=== PATIENT | female | born 1990 | race Caucasian/White ===

== ENCOUNTER 2016-05-16 19:10 | Emergency (ER) | payer OTHER ==
[~2016-05-16] VITALS: Ht 162.6 cm; Wt 56.7 kg
[2016-05-16] MEDS ORDERED: ZOFRAN4 MG ORAL (21:15)
--- NOTE | 2016-05-16 21:15 | Emergency Room Report ---
History of Present Illness General Chief Complaint: Vomiting Source: Patient Present Illness HPI Is a 25-year-old female with no past medical history. She is not sexually active. She present with chief complaint of feeling nauseous and vomiting. Onset last 5 hours. Initially unable to keep anything down but for the last couple hours she's been able to keep small amount of fluid in. No diarrhea. Has cramping epigastric abdominal pain. Denies any fever or chills. No sick contact. No other complaint. Vomiting is nonbloody and nonbileous. Allergies: Coded Allergies: No Known Allergies (Unverified , 05/16/16) Patient History Past Medical History: see triage record, old chart reviewed Past Surgical History: none Pertinent Family History: none Social History: Denies: smoking Last Menstrual Period: 05/06/16 Now: No Immunizations: other Reviewed Nursing Documentation: PMH: Agreed, PSxH: Agreed Nursing Documentation-PMH Past Medical History: No Stated History Review of Systems Eye: Denies: blurred vision, eye pain ENT: Denies: ear pain, nose congestion, throat swelling Respiratory: Denies: cough, shortness of breath Cardiovascular: Denies: chest pain, palpitations Gastrointestinal: Reports: nausea, vomiting, Denies: abdominal pain, diarrhea Musculoskeletal: Denies: back pain, joint pain Skin: Denies: rash Neurological: Denies: headache, numbness Endocrine: Denies: increased thirst, increased urine Hematologic/Lymphatic: Denies: easy bruising All Other Systems: negative except mentioned in HPI Physical Exam Vital Signs Date Time Temp Pulse Resp B/P Pulse Ox O2 Delivery O2 Flow Rate FiO2 05/16/16 19:56 98.8 65 16 106/65 100 Room Air vitals normal Sp02 EP Interpretation: reviewed, normal General Appearance: well appearing, no apparent distress, alert Head: normocephalic, atraumatic Eyes: bilateral eye EOMI, bilateral eye PERRL ENT: hearing grossly normal, normal pharynx Neck: full range of motion, supple, no meningismus Respiratory: chest non-tender, lungs clear, normal breath sounds Cardiovascular #1: regular rate, rhythm, no murmur Gastrointestinal: non tender, no mass, no organomegaly, no bruit, non-distended , abnormal bowel sounds - Hypoactive Musculoskeletal: back normal, gait/station normal, normal range of motion Neurologic: alert, oriented x3 Psychiatric: mood/affect normal Skin: warm/dry Medical Decision Making Diagnostic Impression: Primary Impression: Vomiting Qualified Codes: R11.2 - Nausea with vomiting, unspecified ER Course Patient with abdominal cramps and vomiting. Most likely viral illness. His been prevalent in the community for the last couple weeks. Abdominal exam is benign. She's not psychiatric so therefore unlikely. She felt better now. Patient was seen initially by the PA and labs were ordered. I see no need for patient is feeling better. We'll discharge home. Told patient that if she still having symptoms tomorrow morning or if symptom worsen tonight , come on back. Right now I see no evidence of acute abdomen or obstruction. No evidence of appendicitis. Last Vital Signs Date Time Temp Pulse Resp B/P Pulse Ox O2 Delivery O2 Flow Rate FiO2 05/16/16 19:56 98.8 65 16 106/65 100 Room Air Disposition: HOME, SELF-CARE Condition: Stable Scripts Ondansetron (Zofran) 4 Mg Tablet 4 MG ORAL Q6H Y for Nausea & Vomiting, #10 TAB 0 Refills Prov: ARIELLE CARMEN M.D. 05/16/16 Referrals: NON PHYSICIAN (PCP) Patient Instructions: Nausea and Vomiting, Adult Additional Instructions: Advance diet as tolerated. Followup with your Dr. in 2 to 3 days. Return if continued vomiting tomorrow morning or if symptom worsen. ARIELLE CARMEN M.D. May 16, 2016 21:15
[2016-05-16 21:30] VITALS: BP 110/68
[2016-05-16 21:40] VITALS: BP 110/68
== END 2016-05-16 21:40 | disposition home or self-care (01) ==
LOC: EMR 20:35
DX: R11.2 Nausea with vomiting, unspecified (principal); R10.13 Epigastric pain
CPT/HCPCS: 99283